=== PATIENT | male | born 1935 | race Caucasian/White ===

== ENCOUNTER 2017-03-26 09:17 | Inpatient (IN) ==
--- NOTE | 2017-03-26 09:35 | PROVIDER DOCUMENTATION ---
HPI-Respiratory General - General Chief Complaint: Shortness of Breath Stated Complaint: SOB,FLUID BUILD UP Time Seen by Provider: 03/26/17 09:24 Source: patient Allergies/Adverse Reactions: Patient Allergies Allergy/AdvReac Type Severity Reaction Status Date / Time Penicillins Allergy Severe SWELLING Verified 07/22/16 15:59 Home Medications: Home Medication List Medication Instructions Recorded Confirmed Last Taken Type Doxazosin [Cardura] 4 mg PO DAILY 03/17/13 03/26/17 03/26/17 08:00 History Gabapentin 300 mg PO BID 03/17/13 03/26/17 03/26/17 08:00 History Lisinopril [Zestril] 40 mg PO DAILY 03/17/13 03/26/17 03/25/17 21:00 History Paroxetine HCl [Paxil] 30 mg PO DAILY 03/17/13 03/26/17 03/25/17 21:00 History Levothyroxine [Synthroid] 100 microgm PO DAILY #30 tablet 03/20/13 03/26/17 08:00 Rx Oxycodone/APAP 5 mg/325 mg 1 each PO Q4H PRN PRN #15 tablet 03/20/13 03/26/17 Unknown Rx [Percocet-5] - History of Present Illness-Resp Nature of Presenting Problem: 82 yo male presents to ER with c/o SOB. He was in Dr. 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 He called Dr. Carvajal last night and she will be out of town and she also told him to come to ER. He states that he has had a thoracentesis twice, last one being 6 weeks ago. I reviewed old charts and he was admitted last July for same complaint and had a thoracentesis performed. He denies CP, Fever/chills, N/V. Quality of Pain: reports: none Severity in ED: reports: mild Onset/Duration: reports: unsure Timing: reports: still present Cough Quality/Degree: reports: no cough Episode Frequency: occasional episodes Modifying Factors: improves with: exertion (worsens) Associated Symptoms: reports: denies symptoms Similar Symptoms Previously?: Yes Recently seen or treated by another doctor?: No Review of Systems - Adult - REVIEW OF SYSTEMS - ADULT Constitutional: reports: no symptoms reported Eyes: reports: no symptoms reported Ears, Nose, Mouth & Throat: reports: no symptoms reported Cardiovascular: reports: no symptoms reported Respiratory: reports: see HPI, shortness of breath Gastrointestinal: reports: no symptoms reported Genitourinary: reports: no symptoms reported Musculoskeletal: reports: no symptoms reported Integumentary: reports: no symptoms reported Neurological: reports: no symptoms reported Psychiatric: reports: no symptoms reported Endocrine: reports: no symptoms reported Hematologic/Lymphatic: reports: no symptoms reported Allergic/Immunologic: reports: no symptoms reported All Other Systems: Reviewed and Negative Past History - Adult - PAST MEDICAL HISTORY-ADULT Review of Records: reports: Old Records Reviewed, Nursing Assessment Review, Medications Reviewed, Social history reviewed & non-contributory. Major Childhood Illnesses: reports: denies history Cardiovascular: reports: A-Fib, HTN, hyperlipidemia, other (AAA) Respiratory: reports: asthma, COPD Gastrointestinal: reports: denies history Obstetrical/Gynecological: reports: denies history Genitourinary: reports: denies history Musculoskeletal: reports: denies history Neurological: reports: denies history Endocrine/Immune: reports: thyroid disorder (hypothyroidism) Other Conditions: reports: denies history - PRIOR SURGERIES/PROCEDURES Surgical/Procedure History: reports: cholecystectomy, other (AAA repair, eye surgery) - IMMUNIZATION STATUS Childhood Immunizations: See Nurse Assessment Flu Vaccine: See Nurse Assessment - FAMILY HISTORY Family History: reviewed, not pertinent - SOCIAL HISTORY Smoking: quit greater than 1 year (35 yrs ago) Substance Use: denies Alcohol Use Frequency: never Living Situation: alone Physical Exam-General - PHYSICAL EXAM-ADULT Initial Vital Signs Reviewed: Yes - CONSTITUTIONAL General Appearance: appears well, alert, no apparent distress - EYES Eyes: PERRL/EOMI - HEAD, EARS, NOSE, MOUTH & THROAT HENMT: normocephalic/atraumatic - RESPIRATORY Respiratory: decreased breath sounds (left lower lung), wheezing (right lower lung) - CARDIOVASCULAR Cardiovascular: regular rate, rhythm - GASTROINTESTINAL (ABDOMEN) Abdominal Exam: normal bowel sounds, non tender, soft - SKIN Integumentary: normal color, normal turgor, warm/dry - NEUROLOGIC Neurologic: grossly normal - PSYCHIATRIC Psych/Mental Status: normal mood/affect, normal thought content, normal thought process, oriented x 3 Progress - PLAN OF CARE/RESULTS Progress/Plan/Lab Results: Vital Signs - 8 hr 03/26/17 09:22 03/26/17 10:29 03/26/17 12:17 Temperature 97.7 F Pulse Rate 69 60 58 L Respiratory Rate 24 16 18 Blood Pressure 144/85 147/83 147/83 O2 Sat by Pulse Oximetry 100 98 97 Laboratory Results - last 24 hr 03/26/17 03/26/17 03/26/17 09:39 09:39 09:39 WBC 5.67 RBC 3.92 L Hgb 12.1 L Hct 36.5 L MCV 93.1 MCH 30.9 MCHC 33.2 RDW Std Deviation 13.6 Plt Count 143 MPV 10.7 H Immature Gran % (Auto) 0.0 Neut % (Auto) 71.7 Lymph % (Auto) 10.2 L [place] % (Auto) 9.5 H Eos % (Auto) 7.9 Baso % (Auto) 0.7 Immature Gran # (Auto) 0.00 Neut # (Auto) 4.06 Lymph # (Auto) 0.58 L [place] # (Auto) 0.54 Eos # (Auto) 0.45 Baso # (Auto) 0.04 PT 11.2 INR 1.06 PTT (Actin FS) 32.4 Sodium Potassium Chloride Carbon Dioxide Anion Gap BUN Creatinine Estimated GFR/1.73 m2 BUN/Creatinine Ratio Glucose Calculated Osmolality Calcium Total Bilirubin AST ALT Alkaline Phosphatase Creatine Kinase Troponin T [id number] Pept 2813 H Total Protein Albumin Globulin Albumin/Globulin Ratio PSA Screen 03/26/17 03/26/17 03/26/17 09:39 09:39 09:39 WBC RBC Hgb Hct MCV MCH MCHC RDW Std Deviation Plt Count MPV Immature Gran % (Auto) Neut % (Auto) Lymph % (Auto) [place] % (Auto) Eos % (Auto) Baso % (Auto) Immature Gran # (Auto) Neut # (Auto) Lymph # (Auto) [place] # (Auto) Eos # (Auto) Baso # (Auto) PT INR PTT (Actin FS) Sodium 144 Potassium 4.3 Chloride 105 Carbon Dioxide 28 Anion Gap 11 BUN 12 Creatinine 0.9 Estimated GFR/1.73 m2 > 60 BUN/Creatinine Ratio 13 Glucose 91 Calculated Osmolality 286 Calcium 8.6 L Total Bilirubin 0.53 AST 21 ALT 16 Alkaline Phosphatase 157 H Creatine Kinase 76 Troponin T < 0.010 [id number] Pept Total Protein 6.6 Albumin 4.0 Globulin 2.6 Albumin/Globulin Ratio 1.5 PSA Screen 3.21 Orders Category Date Time Status Nursing- MD Consult Request ROUTINE Care 03/26/17 13:16 Active MD [Physician/Provider Consults] Routine Cons 03/26/17 13:14 Ordered CHEST-2 VIEWS [RAD] Stat Exams 03/26/17 09:26 Completed THORACENTESIS W/IMAGE GUIDANCE [US] Routine Exams 03/26/17 13:17 Taken THORAX/ABDOMEN/PELVIS [CT] Stat Exams 03/26/17 10:35 Completed CBC WITH ELECTRONIC DIFF [HEME] Stat Lab 03/26/17 09:39 Completed CK PROFILE [SP CHEM] Stat Lab 03/26/17 09:39 Completed CMP [COMPREHENSIVE METABOLIC PANEL] [CHEM] Stat Lab 03/26/17 09:39 Completed PRO B-NATRIURETIC PEPTIDE Stat Lab 03/26/17 09:39 Completed PROTIME WITH INR [COAG] Stat Lab 03/26/17 09:39 Completed PSA SCREEN Stat Lab 03/26/17 09:39 Completed PTT [COAG] Stat Lab 03/26/17 09:39 Completed TROPONIN T Stat Lab 03/26/17 09:39 Completed URINALYSIS W/POSS RFLX CULT [URINALYSIS] Stat Lab 03/26/17 13:36 Uncollected EKG [EKG] Stat Ther 03/26/17 09:27 Draft Transfer/Admit Order [TRANSFER] Routine Transfer 03/26/17 13:20 Ordered 1020-Discussed patient case/reviewed past charts and labs with Dr. Ramirez and she advised to get a chest and abd CT with IV contrast only for underlying infiltrate. 1215-Discussed CT report with Dr. Ramirez; agreeable with admission. 1225-Spoke with Melissa FERNANDO about patient case; admit to Dr. Samaniego. Result Diagrams: 03/26/17 09:39 03/26/17 09:39 - XRAY 1 XRAY Study: Chest Impression: Abnormal (moderate left pleural effusion with adjacent atelectasis and or infiltrates and suggestion of fibrosis at the left midlung zone.) XRAY Interpretation: Interpreted by Dr. Davis - CT/MRI 1 CT Study: Abdomen, Pelvis, Thorax Impression: Abnormal (1. Similar appearing, moderate left pleural effusion. Extensive scarring/chronic atelectasis of the left lung. 2. Probable chronic passive congestion of the liver causing advanced cirrhosis at this point. 3. Urinary bladder tumores concerning for cancer. There is also enlargement with nodularity of the prostate gland. Further evaluation is recommended. 4. Abdominal aortic anneurysm) CT Results: Interpreted by Dr. Williamson Departure - Departure Time of Disposition Decision: 12:25 DIAGNOSIS: Pleural effusion, Bladder tumor, Shortness of breath Disposition: ADMITTED INPATIENT 09 Certified Medical Emergency: Emergent Condition: Fair - Critical Care Note This patient required my direct & personal management of CC.: No Attestation - Physician/ ROSA Attestation Patient care was provided by Advanced Practice Provider:: Yes Advanced Practice Provider:: Vee Rapp Advanced Practice Provider documentation review:: The Mid-level provider documentation, treatment plan and medical decision making was reviewed by the physician who agrees with all treatment and medical decision making by the MLP. The physician spent face to face time with patient:: Yes Advanced Practice Provider documentation review:: The physician spent face to face time with this patient and agrees with all MLP documentation, treatment, and medical decision making by the MLP. See provider notes for further information.
[2017-03-26 09:52] LABS: MANUAL DIFF NEEDED? NO
[2017-03-26 09:54] LABS: BASO% 0.7 % (0.0-0.8); EOS# 0.45 X1000 (0.0-0.7); EOS% 7.9 % (0.0-10.0); HEMATOCRIT 36.5 % (42.0-52.0); HEMOGLOBIN 12.1 g/dL (14.0-18.0); LYMPH# 0.58 X1000 (1.2-3.4); LYMPH% 10.2 % (20.5-51.1); MCH 30.9 PG (27-31); MCHC 33.2 g/dL (33-37); MCV 93.1 FL (81-99); MONO# 0.54 X1000 (0.11-0.59); MONO% 9.5 % (1.7-9.3); MPV 10.7 FL (7.4-10.4); NEUT% 71.7 % (42.2-75.2); PLT 143 X1000 (130-400); RBC 3.92 XMIL (4.7-6.1)
--- NOTE | 2017-03-26 10:08 | EKG Report ---
Test Performed on : 03/26/2017 09:31:12 AM Test Reason : sob Blood Pressure : / mmHG Vent. Rate : 064 BPM Atrial Rate : 066 BPM P-R Int : 000 ms QRS Dur : 102 ms QT Int : 426 ms P-R-T Axes : 000 008 043 degrees QTc Int : 439 ms Atrial fibrillation. with a competing junctional pacemaker. Abnormal ECG When compared with ECG of 22-JUL-2016 16:03, Nonspecific T wave abnormality no longer evident in Anterior leads Unconfirmed Result
[2017-03-26 10:15] LABS: AGAP 11; ALKALINE PHOSPHATASE 157 U/L (32-122); BUN 12 mg/dL (8-22); CALCIUM 8.6 mg/dL (8.8-10.2); CHLORIDE 105 mmol/L (98-107); CK PROFILE 76 U/L (24-204); COSMO 286; GOT 21 U/L (10-34); GPT 16 U/L (10-44); POTASSIUM 4.3 mmol/L (3.5-5.1); SODIUM 144 mmol/L (136-145); TCO2 28 mmol/L (25-35); TOTAL BILIRUBIN 0.53 mg/dL (0.20-1.00); TOTAL PROTEIN 6.6 g/dL (6.3-8.3)
[2017-03-26 10:38] LABS: INR 1.06; PROTIME 11.2 Seconds (9.2-11.7); PTT 32.4 Seconds (22.0-36.0)
--- NOTE | 2017-03-26 10:56 | Diag Imaging Result Doc PS360 ---
EXAM: CHEST-2 VIEWS INDICATION: shortness of breath TECHNIQUE: 2 views COMPARISON: 07/25/2016 FINDINGS: There is a moderate-sized left pleural effusion that appears somewhat larger than the previous study. There is evidence of prior granulomatous disease, stable. There is atelectasis and/or infiltrate at the lower lung zone on the left and suggestion of fibrosis at the left mid lung zone right lung is grossly clear. The cardiac silhouette is stable. IMPRESSION: Moderate left pleural effusion with adjacent atelectasis and/or infiltrate and suggestion of fibrosis at the left midlung zone. Electronically signed by Melchor Davis 03/26/2017 10:53 AM
--- NOTE | 2017-03-26 11:51 | Diag Imaging Result Doc PS360 ---
THORAX/ABDOMEN/PELVIS - 03/26/2017 INDICATION: pleural effusion to left lung/SOB/Tender to LUQ TECHNIQUE: A CT dose reduction protocol was used. COMPARISON: 12/08/2016, 09/15/2011 FINDINGS: CHEST: A right upper extremity contrast injection was performed. Contrast has flowed all the way from the upper extremity down the IVC into the right renal vein. This indicates probable chronic passive congestion due to right heart failure. There is severe vascular calcification of the coronary artery tree, with emphasis on the right side. There is a moderately large left pleural effusion very similar to the prior chest CT of 12/08/2016. Stable extensive linear scarring/chronic atelectasis in the lateral left lung. The right lung is fairly clear. The airways are all patent. No adenopathy. There is extensive vascular disease of the aortic arch. There are extremely severe degenerative changes of the spine with LT osteophytes. No acute bony lesions. The liver demonstrates severely nodular contour with right lobe atrophy and left lobe hypertrophy. There is mild to moderate splenomegaly. The spleen size measures about 17 x 7 cm. There is trace ascites. There are suspicious enhancing tumors of the urinary bladder. This involves both the prostate gland projecting into the urinary bladder, and the anterior urinary bladder wall. No bowel obstruction or inflammation. Small infrarenal abdominal aortic fusiform aneurysm measures about 3.5 x 4 cm in AP and lateral dimensions. The prostate gland is enlarged. Rectum is normal. No hydronephrosis or hydroureter. There is right renal cortical scarring and left renal cysts. There is severely advanced degenerative change of the lumbar spine. No acute bony lesions. IMPRESSION: 1. Similar appearing, moderate left pleural effusion. Extensive scarring/chronic atelectasis of the left lung. 2. Probable chronic passive congestion of the liver causing advanced cirrhosis at this point. There is associated splenomegaly. 3. Urinary bladder tumors concerning for cancer. There is also enlargement with nodularity of the prostate gland. Further evaluation recommended. 4. Abdominal aortic aneurysm. Electronically signed by Sebastian Williamson 03/26/2017 11:48 AM
--- NOTE | 2017-03-26 11:59 | ED EKG INTERP ---
This chart was entered by Selam Irizarry Scribe, acting as scribe for Alison Ramirez MD. EKG Interpretation - EKG Time of EKG reading by physician:: 09:31 EKG Read and Signed by:: Alison Ramirez EKG Interpretation (*Must complete 3 of following elements*): Abnormal Rate: 64 Rhythm: atrial fibrillation w/ a competing junctional pacemaker This chart was documented by the indicated scribe, (Selam Irizarry Scribe) and accurately reflects the services I performed and decisions made by me, Alison Ramirez MD, as attested by the provider's signature.
--- NOTE | 2017-03-26 14:22 | HISTORY AND PHYSICAL ---
PRIMARY CARE PROVIDER: Dr. Momo Stafford. CHIEF COMPLAINT: Shortness of breath. HISTORY OF PRESENT ILLNESS: Mr. Johnson is an 82-year-old male with a medical history of COPD, hypertension, atrial fibrillation, who also has recently since July 2016 been having recurrent left pleural effusions. Apparently had thoracentesis July 2016 that removed 3.5 L, and the patient states he had another 1.5 L removed around 3 months ago. Other imaging that was performed here for workup included a chest/abdomen/pelvic CT. It showed the left pleural effusion as being moderate. It also showed some chronic passive congestion of the liver , splenomegaly which is known, and urinary bladder tumors that is concerning for cancer. He is followed by Dr. Yan as outpatient for his BPH. The patient states that he has actually followed up with Dr. Yan 1 week ago and was told his prostate was okay. He presented to his primary care provider yesterday, Dr. Stafford, in which a chest x-ray was performed. At that time it showed a pleural effusion. Told him to come to the ER at that time, but he waited 1 day and came today. He states that his shortness of breath is worse when he is lying flat or with activity. He says he has a productive cough that is clear. He denies fever or chills. He also denies blood in the urine or stool. Will admit to the medical floor, consult Dr. Yan. Will also order for a left thoracentesis today by ultrasound. PAST MEDICAL HISTORY: Asthma, COPD, hypertension, hypothyroidism, atrial fibrillation, depression, recurrent left pleural effusion, BPH. SURGICAL HISTORY: Cholecystectomy, abdominal aortic aneurysm repair, right eye surgery. SOCIAL HISTORY: Quit smoking 35 to 37 years ago. Smoked 20 years less than 1 pack per day at that time. Denies alcohol or illicit drug use. He states his about 2 years ago. FAMILY HISTORY: Noncontributory. ALLERGIES: Penicillin. HOME MEDICATIONS: 1. Cardura 4 mg p.o. daily. 2. Neurontin 300 mg p.o. twice daily. 3. Synthroid 100 mcg p.o. daily. 4. Lisinopril 40 mg p.o. daily. 5. Percocet 5 one tab p.o. every 4 hours as needed. 6. Paxil 30 mg p.o. daily. REVIEW OF SYSTEMS: Fourteen point review of systems were complete and all were negative, except for those mentioned in the above HPI. PHYSICAL EXAMINATION: VITAL SIGNS: Temperature is 97.7 degrees, heart rate 58, respiratory rate 18, blood pressure 147/83, O2 saturation 97% on room air. He is 6 feet 2 inches tall, 190 pounds. BMI is 24.4. GENERAL: Mr. Johnson is an 82-year-old, male. He is in no acute distress. He is able to answer all questions appropriately. HEENT: Atraumatic, normocephalic. Pupils equal, round, reactive to light. Extraocular movements intact. Mucous membranes moist. NECK: No JVD or carotid bruits noted. CARDIOVASCULAR: Irregularly irregular rate and rhythm. No rubs, gallops, or murmurs. PULMONARY: Significantly decreased in the left mid to lower lobe anterior and posteriorly. Otherwise, clear in all other areas. No accessory muscle use or work of breathing noted. GI: Soft, nontender, nondistended. Positive bowel sounds x4. SKIN: Warm, dry and intact. EXTREMITIES: Trace lower extremity edema. +1 dorsalis pedal pulses, +2 radial pulses. All extremities warm. NEUROLOGIC: Alert and oriented x4. Moves all extremities equally. PROSTATE EXAM: Deferred. LABORATORY DATA: White blood cells, 5000, hemoglobin 12, hematocrit 36, platelet count 143, INR 1.06. PTT 32.4. Sodium 144, potassium 4.3, BUN 12, creatinine 0.9, glucose 91 , calcium 8.6, total bilirubin 0.53. AST 21, ALT 16, alkaline phos 157. CK 76. Troponin less than 0.01. ProBNP is 2813. Albumin 4.0. IMAGING: The chest/abdomen/pelvic CT: Moderate left pleural effusion. Extensive scarring. Chronic atelectasis of the left lung. Probable chronic passive congestion of the liver causing advanced cirrhosis with associated splenomegaly. Urinary bladder tumors concerning for cancer. There is also enlargement with nodularity of the prostate gland and abdominal aortic aneurysm. EKG: Atrial fibrillation. Rate is 64. Chest x-ray: Moderate left pleural effusion with adjacent atelectasis and/or infiltrate and suggestion of fibrosis of the left mid lung zone. ASSESSMENT AND PLAN: 1. Recurrent left pleural effusion causing shortness of breath. We will do thoracentesis and labs. 2. Chronic obstructive pulmonary disease, no exacerbation. Will do nebulizers as needed. 3. Bladder tumor failed. He is followed by Dr. Yan as outpatient for benign prostatic hyperplasia, so will reconsult him for possible biopsy or recommendations. 4. Benign prostatic hyperplasia. We will do a prostate-specific antigen and follow Dr. Yan recommendations. 5. Atrial fibrillation, rate controlled. He is not on any blood thinners at this time. 6. Hypothyroidism with a thyroid stimulating hormone in the morning. 7. Abdominal pelvic computed tomography showed probable chronic passive congestion of the liver causing advanced cirrhosis, but his liver enzymes are normal at this time. He has no complaints of pain in that area. 8. Deep venous thrombosis prophylaxis. Sequential compression devices. Dictated by ABDULLAHI Herron for Clifford Samaniego MD cc: ABDULLAHI Herron MD Thomas E. Lockard, I have seen and examined patient. I agree with the above plan. Patient with recurrent Left Pleural effusion which symptomatic now Will plan for Thoracentesis with IREder GREEN
--- NOTE | 2017-03-26 15:17 | Diag Imaging Result Doc PS360 ---
THORACENTESIS W/IMAGE GUIDANCE - 03/26/2017 INDICATION: left pleural effusion TECHNIQUE: The risks and benefits of the procedure were discussed with the patient. All questions were answered. Written and verbal informed consent was obtained. Overlying skin was prepped and draped in sterile fashion. Anesthesia was achieved with injection of 10 cc of 1% lidocaine. COMPARISON: CT from earlier 03/26/2017 FINDINGS: The moderately large left pleural effusion was successfully drained. 1.7 L was removed and sent for laboratory testing. The follow-up chest x-ray demonstrated that the left lung had not yet completely reexpanded. IMPRESSION: 1. Successful drainage of the moderately large left pleural effusion. 2. Left lung is not completely reexpanded. A follow-up chest x-ray in about 2-4 hours recommended. Electronically signed by Sebastian Williamson 03/26/2017 3:15 PM
--- NOTE | 2017-03-26 15:18 | Diag Imaging Result Doc PS360 ---
CHEST-2 VIEWS - 03/26/2017 INDICATION: TO FOLLOW THORACENTESIS TECHNIQUE: COMPARISON: Chest x-ray earlier 03/26/2017 FINDINGS: There has been successful drainage of the rather large left pleural effusion. The left lung has not yet completely reexpanded. There is a hydropneumothorax of about 30-40%. IMPRESSION: Drainage of the left pleural effusion. Resulting hydropneumothorax of about 30-40%, mostly from the air. Electronically signed by Sebastian Williamson 03/26/2017 3:16 PM
[2017-03-26] MEDS ORDERED: ZOFRAN IV PRN (15:19)
[2017-03-26] MEDS ORDERED: TYLENOL PO PRN (15:19)
[2017-03-26] MEDS ORDERED: PERCOCET-5 PO PRN (15:19)
[2017-03-26 16:17] LABS: DIFF NEEDED? YES; WBC BF 258 /cumm
[2017-03-26 16:22] LABS: MONOS 81 %; POLYS 20 %
[2017-03-26 16:25] LABS: SPECIMEN PLEURAL FLUID
[2017-03-26 17:54] LABS: URINE CULTURE NEEDED? NO; URINE MICRO REVIEW NEEDED? NO; URINE SOURCE CLEAN CATCH
[2017-03-26 18:09] LABS: BILIRUBIN URINE NEGATIVE (NEGATIVE); BLOOD URINE NEGATIVE (NEGATIVE); COLOR YELLOW; GLUCOSE URINE NEGATIVE (NEGATIVE); LEUKOCYTES URINE NEGATIVE (NEGATIVE); NITRITE URINE NEGATIVE (NEGATIVE); PROTEIN URINE NEGATIVE (NEGATIVE); SP GRAVITY URINE 1.028; TURBIDITY URINE CLEAR (CLEAR); UR EPITHELIAL CELLS <10 /HPF (<10); URINE BACTERIA NEGATIVE /HPF; URINE RBC <10 /HPF (<10); URINE WBC <10 /HPF (<10); UROBILINOGEN URINE NORMAL (NORMAL)
--- NOTE | 2017-03-26 18:31 | CONSULTATION ---
DATE OF CONSULTATION: 03/26/2017 ATTENDING AND REFERRING PHYSICIAN: Hospitalist. HISTORY OF PRESENT ILLNESS: This 82-year-old male with long history of an enlarged prostate with obstructive voiding was admitted with a recurrent left pleural effusion. A CT scan again documented the pleural effusion and revealed an enlarged prostate and thickening of the anterior bladder wall. The patient denies any hematuria. He takes Cardura 4 mg a day for obstructive voiding. He states he usually does well but after his CT scan when they gave him Lasix he states he had to go much more often. He states he is getting back to normal at present. He denies problems with urinary tract infections. PAST MEDICAL HISTORY: Depression, peripheral vascular disease, COPD, hypertension, hypothyroidism, recurrent left pleural effusion, long history of splenomegaly. CURRENT MEDICATIONS: Are documented on the chart and include Cardura 4 mg a day. PAST SURGICAL HISTORY: Cholecystectomy, abdominal aortic aneurysm repair, right eye surgery. SOCIAL HISTORY: No current cigarette, tobacco or alcohol use. ALLERGIES: He is allergic to penicillin. REVIEW OF SYSTEMS: He states he usually does well but has been having shortness of breath. He states his recently. He states he feels better after the thoracentesis that was done earlier today. He denies any problems with diabetes, strokes, or seizures. PHYSICAL EXAMINATION: General: A normally developed, well-nourished, age apparent, white male, oriented in all ways and cooperative. HEENT: Normal for age. Lungs: Clear. Cardiovascular: Irregular rate and rhythm. Abdomen: Mildly protuberant soft, nontender. No hepatosplenomegaly or masses. Normal bowel sounds. : Uncircumcised male. Both testes are down and palpably normal. No inguinal hernias. Foreskin retracts. Rectal: Normal sphincter tone. Prostate 50-60 g, smooth, and symmetric. Extremities: No clubbing, cyanosis, or edema. Neuro: No focal deficits. CT scan again reveals an enlarged prostate. There is calcification in the prostate consistent with stone. There is thickening of the bladder wall anterior on the anterior wall opposite the prostate that is protruding into his bladder. LABORATORY EVALUATION: Has a PSA of 3.21 drawn today. His CBC has a white count of 5.67, hemoglobin 12.1, hematocrit 36.5, platelets 143,000. Serum electrolytes are normal. Serum glucose is normal. BUN 12, creatinine 0.9. IMPRESSION: 1. Abnormal bladder on CT scan. 2. Enlarged prostate with obstructive voiding. 3. Normal PSA with a smooth and symmetric prostate on exam. RECOMMEND: Start Flomax 0.4 mg a day. Will schedule cystoscopic exam in the office. He will call Wednesday for an appointment. Thank you for this consultation. cc: Mark Yan MD
--- NOTE | 2017-03-26 19:56 | Diag Imaging Result Doc PS360 ---
CHEST-2 VIEWS - 03/26/2017 INDICATION: pneumothorax TECHNIQUE: COMPARISON: 1500 FINDINGS: There is increase in size of the left-sided pneumothorax. This is now about 50%. The right lung is clear. IMPRESSION: Increasing left pneumothorax. Dr. Loja subscription clerk for surgery was notified and his assistance was requested. Electronically signed by Sebastian Williamson 03/26/2017 7:53 PM
[2017-03-26] MEDS ORDERED: FLOMAX PO SCH (21:00)
[2017-03-26] MEDS: NEURONTIN PO SCH (21:32)
[2017-03-26] MEDS ORDERED: BENADRYL PO PRN (22:05)
[2017-03-27 06:02] LABS: MANUAL DIFF NEEDED? NO
[2017-03-27 06:17] LABS: BASO% 0.3 % (0.0-0.8); EOS# 0.35 X1000 (0.0-0.7); EOS% 5.9 % (0.0-10.0); HEMATOCRIT 34.9 % (42.0-52.0); HEMOGLOBIN 11.4 g/dL (14.0-18.0); LYMPH# 0.45 X1000 (1.2-3.4); LYMPH% 7.6 % (20.5-51.1); MCH 30.2 PG (27-31); MCHC 32.7 g/dL (33-37); MCV 92.6 FL (81-99); MONO% 8.4 % (1.7-9.3); MPV 10.9 FL (7.4-10.4); NEUT% 77.8 % (42.2-75.2); PLT 155 X1000 (130-400); RBC 3.77 XMIL (4.7-6.1)
[2017-03-27 06:24] LABS: INR 1.13; PTT 32.5 Seconds (22.0-36.0)
[2017-03-27 06:25] LABS: AGAP 9; ALKALINE PHOSPHATASE 135 U/L (32-122); BUN 12 mg/dL (8-22); CALCIUM 8.1 mg/dL (8.8-10.2); CHLORIDE 107 mmol/L (98-107); COSMO 282; GOT 18 U/L (10-34); GPT 12 U/L (10-44); SODIUM 142 mmol/L (136-145); TCO2 26 mmol/L (25-35); TOTAL BILIRUBIN 0.66 mg/dL (0.20-1.00); TOTAL PROTEIN 5.4 g/dL (6.3-8.3)
[2017-03-27] MEDS ORDERED: PRILOSEC PO SCH (07:00)
[2017-03-27] MEDS ORDERED: SYNTHROID PO SCH (07:00)
[2017-03-27 07:51] VITALS: BP 145/80
[2017-03-27] MEDS: NEURONTIN PO SCH (08:05)
[2017-03-27] MEDS ORDERED: PAXIL PO SCH (09:00)
[2017-03-27] MEDS ORDERED: PRINIVIL PO SCH (09:00)
[2017-03-27] MEDS ORDERED: CARDURA PO SCH (09:00)
--- NOTE | 2017-03-27 09:34 | Diag Imaging Result Doc PS360 ---
CHEST-2 VIEWS - 03/27/2017 INDICATION: pneumothorax TECHNIQUE: Inspiration/expiration COMPARISON: 03/26/2017 FINDINGS: There is perhaps slight improvement in the left hydropneumothorax. The lungs now occupies about 60% of the thorax. The remainder is occupied by a hydropneumothorax. The air component has significantly decreased, with increase in the effusion. IMPRESSION: Improvement in the left hydropneumothorax. Electronically signed by Sebastian Williamson 03/27/2017 9:32 AM
--- NOTE | 2017-03-27 15:53 | DISCHARGE SUMMARY ---
ADMISSION DATE: 03/26/2017 DISCHARGE DATE: 03/27/2017 DISPOSITION: Home. CONSULTATIONS DURING THIS ADMISSION: Urology was consulted. Patient was seen by Dr. Yan. Interventional Radiology was consulted for thoracentesis. INVASIVE PROCEDURE DONE DURING THIS ADMISSION: A left thoracentesis was done by IR, 1.7 L of fluid was done. There was mild postop pneumothorax, and a repeat chest x-ray this morning shows improvement. ADMISSION DIAGNOSES: 1. Recurrent left pleural effusion. 2. COPD. 3. Benign prostatic hyperplasia. 4. Atrial fibrillation, rate controlled. 5. Hypothyroidism. DISCHARGE DIAGNOSES: 1. Recurrent left pleural effusion status post thoracentesis. 2. Iatrogenic pneumothorax after thoracentesis. This has improved. 3. History of COPD, not in exacerbation. 4. BPH with a CT scan of the pelvic suggestive of possible bladder tumor concerning for cancer. 5. Abdominal aortic aneurysm 3.5 x 5 x 4 cm. DISCHARGE MEDICATIONS: Include: 1. Paroxetine 30 mg daily. 2. Lisinopril 40 mg daily. 3. Doxazosin 4 mg daily. 4. Gabapentin 300 b.i.d. 5. Levothyroxine 100 mcg daily. 6. Tamsulosin 0.4 mg p.o. daily. PRESENTING COMPLAINT: Shortness of breath. HISTORY OF PRESENTING COMPLAINT: Mr. Lau is an 82 years old male with a history of COPD, atrial fibrillation, and hypertension who recently got a left-sided thoracentesis in July 2007, 3.5 L was removed. Three months later 1.5 mL was removed. The patient came in at this time because of shortness of breath, and another 1.7 has been removed. The patient's shortness of breath has improved. The analysis of the fluid shows a lymphocytic predominant exudative pleural effusion. Cultures have been sent. Patient is remarkably doing fine. Shortness of breath has resolved and he wants to go home. We will therefore discharge him since he has a very good followup with Dr. Ireland. The patient was also seen during the hospital stay by Dr. Yan because of the concern of the bladder cancer and his recommendation is to follow up on outpatient within a week for an outpatient cystoscopy. The patient is going to be discharged home. He is going to be followed up by Dr. Ireland, and also Dr. Yan. 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 TIME SPENT FOR DISCHARGE: Thirty-six minutes. cc: Clifford Samaniego MD
--- NOTE | 2017-03-29 07:39 | EKG Report ---
Test Performed on : 03/27/2017 06:29:20 AM Test Reason : chest pain Blood Pressure : / mmHG Vent. Rate : 064 BPM Atrial Rate : 208 BPM P-R Int : 000 ms QRS Dur : 084 ms QT Int : 400 ms P-R-T Axes : 000 032 054 degrees QTc Int : 412 ms Atrial fibrillation. Septal infarct , age undetermined Abnormal ECG When compared with ECG of 26-MAR-2017 09:31, Nonspecific T wave abnormality now evident in Lateral leads Confirmed by Joselito Lamar MD ([id number]) on 03/30/2017 8:18:24 AM
== END 2017-03-27 12:04 | disposition home or self-care (01) ==
LOC: ED 09:17 → 3N 14:11
PROVIDERS: ATTEND Internal Medicine